=== PATIENT | female | born 1935 | race Caucasian/White ===

== ENCOUNTER 2016-07-10 16:51 | Inpatient (IN) | payer OTHER ==
[~2016-07-10] VITALS: Ht 160 cm; Wt 74.3 kg
[2016-07-10 17:45] LABS: HEMATOCRIT 34.4 % (36.0-46.0); MCH 27.8 PG (29.0-34.0); MCHC 33.7 G/DL (30.0-36.0); MEAN PLAT.VOLUME 9.6 uM^3 (9.5-12.4); RBC DIS.WIDTH-CV 15.1 % (11.8-14.6); RBC DIS.WIDTH-SD 44.1 % (39-53); RED BLOOD COUNT 4.17 M/uL (3.80-5.20)
[2016-07-10 17:54] LABS: MCV 82.5 FL (83-99); PLATELET COUNT 313 K/uL (156-360); WHITE BLOOD COUNT 15.9 K/uL (4.1-10.2)
[2016-07-10 18:02] LABS: CHLORIDE 98 mEq/L (99-109); POTASSIUM 3.5 mEq/L (3.7-5.4); SODIUM 131 mEq/L (136-147)
[2016-07-10 18:04] LABS: GLUCOSE 155 mg/dL (70-99)
[2016-07-10 18:05] LABS: ANION GAP 13 MEQ/L (2-14)
[2016-07-10 18:08] LABS: GFR ESTIMATE (CALCULATED) 42 mL/min/
[2016-07-10 18:09] LABS: UREA NITROGEN (BUN) 31 mg/dL (9-23)
[2016-07-10] MEDS ORDERED: ALTOPREV40 MG PO (19:06)
[2016-07-10] MEDS ORDERED: FUROSEMIDE20 MG PO (19:07)
[2016-07-10] MEDS ORDERED: QUINAPRIL HCL20 MG PO (19:07)
[2016-07-10] MEDS ORDERED: ASPIR-LOW81 MG PO (19:08)
[2016-07-10] MEDS ORDERED: KLOR-CON20 MEQ PO (19:08)
[2016-07-10] MEDS ORDERED: MAGNESIUM400 M1 PO (19:09)
[2016-07-10] MEDS ORDERED: VITAMIN C500 M1 PO (19:09)
[2016-07-10] MEDS ORDERED: FISH OIL 1,2001 EAC4 PO (19:10)
[2016-07-10] MEDS ORDERED: CALCIUM + D3 E1 EACH PO (19:10)
[2016-07-10] MEDS ORDERED: B COMPLETE1 EACH PO (19:11)
[2016-07-10] MEDS ORDERED: TYLENOL PM1 CAPLET PO (19:13)
[2016-07-10] MEDS ORDERED: TYLENOL REGULA325 MG PO ×2 (19:14→21:06)
[2016-07-10] MEDS ORDERED: IRON325 M1 PO (19:30)
[2016-07-10] MEDS ORDERED: MAGNESIUM250 MG PO (21:08)
[2016-07-10] MEDS ORDERED: VITAMIN B-121000 MC1 SL (21:09)
[2016-07-10] MEDS ORDERED: CYANOCOBALAM1000 MCG PO (21:09)
[2016-07-10] MEDS ORDERED: CLEAR EYES ITCH15 ML BOTH EYES (21:10)
[2016-07-10] MEDS ORDERED: REQUIP0.5 MG PO (21:12)
[2016-07-11] VITALS (10 sets, daily range): BP systolic 122–191; BP diastolic 56–98
[2016-07-11 07:22] LABS: EOSINOPHIL (%) 0.1 % (0-5); HEMATOCRIT 28.7 % (36.0-46.0); IMMATURE GRANULOCYTE (%) 0.5 % (0.0-0.7); IMMATURE GRANULOCYTE COUNT 0.1 K/uL; LYMPHOCYTE COUNT 0.9 K/uL (1.0-2.8); MCH 27.6 PG (29.0-34.0); MCHC 33.4 G/DL (30.0-36.0); MCV 82.5 FL (83-99); MEAN PLAT.VOLUME 9.8 uM^3 (9.5-12.4); MONOCYTE (%) 3.5 % (3-12); MONOCYTE COUNT 0.5 K/uL (0-0.8); NEUTROPHIL (%) 89.7 % (45-76); NEUTROPHIL COUNT 13.5 K/uL (1.8-6.4); PLATELET COUNT 279 K/uL (156-360); RBC DIS.WIDTH-CV 15.4 % (11.8-14.6); RBC DIS.WIDTH-SD 45.9 % (39-53); RED BLOOD COUNT 3.48 M/uL (3.80-5.20); WHITE BLOOD COUNT 15.1 K/uL (4.1-10.2)
[2016-07-11 07:35] LABS: ANION GAP 8 MEQ/L (2-14); CHLORIDE 99 MEQ/L (99-109); GFR ESTIMATE (CALCULATED) 42 mL/min/; POTASSIUM 3.9 MEQ/L (3.7-5.4); SAMPLE HEMOLYSIS CHECK 0; SAMPLE ICTERIC CHECK 0; SAMPLE LIPEMIA CHECK 0; SODIUM 129 MEQ/L (136-147); UREA NITROGEN (BUN) 31 mg/dL (9-23)
[2016-07-11 07:38] LABS: GLUCOSE 111 mg/dL (70-99)
[2016-07-11 07:39] LABS: Estimated Average Glucose 160 mg/dL (70-123); HEMOGLOBIN A1c (GLYCOHEMOGLOB) 7.2 % HGB (Below 5.7)
[2016-07-12 03:00] VITALS: BP 153/69
[2016-07-12 03:38] VITALS: BP 128/58
[2016-07-12 06:58] LABS: HEMATOCRIT 27.2 % (36.0-46.0); MCH 28.3 PG (29.0-34.0); MCHC 33.5 G/DL (30.0-36.0); MCV 84.5 FL (83-99); MEAN PLAT.VOLUME 9.5 uM^3 (9.5-12.4); PLATELET COUNT 264 K/uL (156-360); RBC DIS.WIDTH-CV 15.4 % (11.8-14.6); RED BLOOD COUNT 3.22 M/uL (3.80-5.20)
[2016-07-12 07:02] VITALS: BP 122/78
[2016-07-12 07:02] LABS: WHITE BLOOD COUNT 10.3 K/uL (4.1-10.2)
[2016-07-12 07:13] LABS: EOSINOPHIL (%) 0.8 % (0-5); EOSINOPHIL COUNT 0.1 K/uL (0-0.3); HEMATOLOGY COMMENT 1 REV; IMMATURE GRANULOCYTE (%) 2.2 % (0.0-0.7); IMMATURE GRANULOCYTE COUNT 0.2 K/uL; LYMPHOCYTE COUNT 1.9 K/uL (1.0-2.8); MONOCYTE (%) 7.9 % (3-12); MONOCYTE COUNT 0.8 K/uL (0-0.8); NEUTROPHIL COUNT 7.3 K/uL (1.8-6.4); USER ID NJR
[2016-07-12 07:15] LABS: ANION GAP 8 MEQ/L (2-14); CHLORIDE 97 MEQ/L (99-109); GFR ESTIMATE (CALCULATED) 35 mL/min/; GLUCOSE 96 mg/dL (70-99); POTASSIUM 4.5 MEQ/L (3.7-5.4); SAMPLE HEMOLYSIS CHECK 0; SAMPLE ICTERIC CHECK 0; SAMPLE LIPEMIA CHECK 0; SODIUM 127 MEQ/L (136-147); UREA NITROGEN (BUN) 36 mg/dL (9-23)
[2016-07-12 16:25] VITALS: BP 132/78
[2016-07-12 16:33] VITALS: BP 132/78
[2016-07-13 00:30] VITALS: BP 162/78
[2016-07-13 04:00] VITALS: BP 136/80
[2016-07-13 07:30] LABS: MCH 27.8 PG (29.0-34.0); MCHC 32.9 G/DL (30.0-36.0); MCV 84.5 FL (83-99); MEAN PLAT.VOLUME 9.1 uM^3 (9.5-12.4); PLATELET COUNT 306 K/uL (156-360); RBC DIS.WIDTH-CV 15.5 % (11.8-14.6); RBC DIS.WIDTH-SD 47.5 % (39-53); RED BLOOD COUNT 3.67 M/uL (3.80-5.20); WHITE BLOOD COUNT 8.8 K/uL (4.1-10.2)
[2016-07-13 07:44] VITALS: BP 171/86
[2016-07-13 07:57] LABS: ANION GAP 8 MEQ/L (2-14); CHLORIDE 104 MEQ/L (99-109); GFR ESTIMATE (CALCULATED) 46 mL/min/; GLUCOSE 89 mg/dL (70-99); POTASSIUM 4.2 MEQ/L (3.7-5.4); SAMPLE HEMOLYSIS CHECK 0; SAMPLE ICTERIC CHECK 0; SAMPLE LIPEMIA CHECK 0; UREA NITROGEN (BUN) 32 mg/dL (9-23)
[2016-07-13 07:58] LABS: SODIUM 134 MEQ/L (136-147)
[2016-07-13 08:24] LABS: EOSINOPHIL (%) 1.5 % (0-5); EOSINOPHIL COUNT 0.1 K/uL (0-0.3); HEMATOLOGY COMMENT 1 SMEAR COMPATIBLE; IMMATURE GRANULOCYTE (%) 4.2 % (0.0-0.7); IMMATURE GRANULOCYTE COUNT 0.4 K/uL; LYMPHOCYTE COUNT 1.8 K/uL (1.0-2.8); MONOCYTE (%) 8.5 % (3-12); MONOCYTE COUNT 0.8 K/uL (0-0.8); NEUTROPHIL (%) 65.8 % (45-76); NEUTROPHIL COUNT 5.8 K/uL (1.8-6.4); USER ID CCL
[2016-07-13 09:14] VITALS: BP 132/68
[2016-07-13] MEDS ORDERED: DUONEB 2.5-0.5 M3 ML AEROSOL (13:30)
[2016-07-13] MEDS ORDERED: CEFTIN500 MG PO (13:30)
== END 2016-07-13 17:00 | DRG 194 ==
LOC: EME 16:51 → 2EAST 20:42 → EDOF 20:42 → 2EAST 07-11 00:28
PROVIDERS: Internal Medicine
DX: J18.9 Pneumonia, unspecified organism (principal); N17.9 Acute kidney failure, unspecified; E87.0 Hyperosmolality and hypernatremia; E87.6 Hypokalemia; E11.22 Type 2 diabetes mellitus with diabetic chronic kidney disease; I12.9 Hypertensive chronic kidney disease with stage 1 through stage 4 chronic kidney disease, or unspecified chronic kidney disease; E78.00 Pure hypercholesterolemia, unspecified; N18.3 Chronic kidney disease, stage 3 (moderate); Z79.82 Long term (current) use of aspirin
CPT/HCPCS: 71020; 80048; 82948; 83036; 83605; 85025; 85027; 87040; 87070; 87205; 87449; 94010; 94640 76; 94760; 94799; 99202; 99281; 99285; J0360; J0456; J0692; J0696; J1644; J1815; J7030; J7050